=== PATIENT | male | born 1975 | race Caucasian/White ===

== ENCOUNTER → 2018-05-28 15:04 | Outpatient (CLI) | payer BC, SELFPAY | PROVIDERS: PCP Internal Medicine; Visit Provider Internal Medicine | DX: R00.0 Tachycardia, unspecified (principal); I10 Essential (primary) hypertension | CPT/HCPCS: 93005 ==

== ENCOUNTER → 2021-01-18 12:51 | Outpatient (CLI) | payer BC, SELFPAY | PROVIDERS: Visit Provider Internal Medicine Gastroenterology | DX: U07.1 COVID-19 (principal) | CPT/HCPCS: C9803; U0003; U0005 ==

== ENCOUNTER → 2021-02-03 14:31 | Outpatient (CLI) | payer BC, SELFPAY ==
[2021-02-03 16:21] LABS: Anion Gap 18.8 mEq/L (5-15); Blood Urea Nitrogen 4 mg/dl (9-20); Calcium 9.3 mg/dl (8.4-10.2); Carbon Dioxide 27 mmol/L (22.0-30.0); Chloride 104 mmol/L (98-107); Estimated Glomerular Filt Rate 146 ml/min (>60); GFR (African American) 176 ML/MIN (>60); Glucose 103 mg/dl (74-100); Potassium 3.8 mmoL/L (3.5-5.1); Sodium 146 mmol/L (136-145)
== END ==
PROVIDERS: Visit Provider Internal Medicine
DX: M10.9 Gout, unspecified (principal)
CPT/HCPCS: 36415; 80048; 84550

== ENCOUNTER → 2021-03-17 14:02 | Outpatient (CLI) | payer BC, SELFPAY ==
[2021-03-17 14:44] LABS: Alanine Aminotransferase 24 U/L (12-78); Albumin Level 4.2 g/dl (3.5-5.0); Albumin/Globulin Ratio 1.4 (1.1-1.8); Alkaline Phosphatase 143 U/L (38-126); Aspartate Amino Transferase 174 U/L (17-59); Bilirubin,Total 2.5 mg/dl (0.2-1.3); Blood Urea Nitrogen 7 mg/dl (9-20); Calcium 8.8 mg/dl (8.4-10.2); Chloride 95 mmol/L (98-107); Estimated Glomerular Filt Rate 146 ml/min (>60); GFR (African American) 176 ML/MIN (>60); Globulin 3.1 g/dL (1.3-3.2); Glucose 89 mg/dl (74-100); Potassium 3.6 mmoL/L (3.5-5.1); Sodium 140 mmol/L (136-145); Total Protein,Serum 7.3 g/dl (6.3-8.2); Uric Acid 3.6 mg/dl (3.5-8.5)
[2021-03-17 15:02] LABS: Basophils # 0.1 K/mm3 (0-0.2); Basophils % 1.8 % (0.1-2.0); Eosinophils # 0.1 K/mm3 (0.0-0.4); Eosinophils % 1.1 % (0.1-12.0); Hematocrit 40.1 % (42.0-52.0); Lymphocytes # 1.2 K/mm3 (0.7-4.5); Lymphocytes % 20.8 % (10-50); Mean Corpuscular HGB Conc 32.5 g/dL (31.8-35.4); Mean Corpuscular Hemoglobin 31.5 pg (27.0-31.2); Mean Corpuscular Volume 96.7 fl (80-94); Mean Platelet Volume 9.9 fl (7.4-10.4); Monocytes # 0.4 K/mm3 (0.1-1.0); Monocytes % 7.1 % (1.7-9.3); Neutrophils # 3.9 K/mm3 (1.8-7.8); Neutrophils % 69.2 % (37.0-80.0); Platelet Count 103 K/mm3 (142-424); Red Blood Count 4.14 M/mm3 (4.60-6.20); Red Cell Distribution Width 13.4 % (11.5-17.5); White Blood Count 5.7 K/mm3 (4.8-10.8)
[2021-03-17 15:52] LABS: Vitamin B12 668 pg/mL (239-931)
[2021-03-17 15:58] LABS: Folate 2.28 ng/mL
[2021-03-17 16:15] LABS: Anion Gap 22.6 mEq/L (5-15); Carbon Dioxide 26 mmol/L (22.0-30.0)
== END ==
LOC: LAB.DROPOF 14:04
PROVIDERS: Visit Provider Internal Medicine
DX: I10 Essential (primary) hypertension (principal); E78.5 Hyperlipidemia, unspecified; R63.4 Abnormal weight loss; M10.9 Gout, unspecified
CPT/HCPCS: 80053; 82607; 82746; 84550; 85025

== ENCOUNTER → 2021-04-15 08:42 | Outpatient (CLI) | payer BC, SELFPAY ==
[2021-04-15 10:16] LABS: Basophils % 0.4 % (0.1-2.0); Eosinophils # 0.1 K/mm3 (0.0-0.4); Eosinophils % 0.7 % (0.1-12.0); Hematocrit 38.6 % (42.0-52.0); Hemoglobin 13.1 g/dL (14.1-18.0); Lymphocytes # 1.2 K/mm3 (0.7-4.5); Lymphocytes % 13.2 % (10-50); Mean Corpuscular HGB Conc 33.9 g/dL (31.8-35.4); Mean Corpuscular Hemoglobin 32.8 pg (27.0-31.2); Mean Corpuscular Volume 96.7 fl (80-94); Mean Platelet Volume 8.4 fl (7.4-10.4); Monocytes # 0.6 K/mm3 (0.1-1.0); Monocytes % 7.1 % (1.7-9.3); Neutrophils # 6.8 K/mm3 (1.8-7.8); Neutrophils % 78.6 % (37.0-80.0); Platelet Count 131 K/mm3 (142-424); Red Blood Count 3.99 M/mm3 (4.60-6.20); Red Cell Distribution Width 18.4 % (11.5-17.5); White Blood Count 8.7 K/mm3 (4.8-10.8)
[2021-04-15 10:25] LABS: INR 1.35 (0.9-1.1); Prothrombin Time 14.9 seconds (10.1-12.5)
[2021-04-15 10:40] LABS: Alanine Aminotransferase 45 U/L (12-78); Albumin Level 4.2 g/dl (3.5-5.0); Albumin/Globulin Ratio 1.4 (1.1-1.8); Alkaline Phosphatase 159 U/L (38-126); Aspartate Amino Transferase 192 U/L (17-59); Bilirubin,Total 2.8 mg/dl (0.2-1.3); Blood Urea Nitrogen 9 mg/dl (9-20); Calcium 8.5 mg/dl (8.4-10.2); Carbon Dioxide 23 mmol/L (22.0-30.0); Chloride 94 mmol/L (98-107); Estimated Glomerular Filt Rate 122 ml/min (>60); GFR (African American) 148 ML/MIN (>60); Glucose 78 mg/dl (74-100); Sodium 135 mmol/L (136-145); Total Protein,Serum 7.2 g/dl (6.3-8.2)
[2021-04-16 10:13] LABS: Hep A Ab, IgM Negative (Negative); Hepatitis B Core Antibody IgM Negative (Negative); Hepatitis B Surface Antigen Negative (Negative); Hepatitis C Antibody <0.1 s/co ratio (0.0-0.9)
== END ==
LOC: LAB 08:43
PROVIDERS: Visit Provider Surgery
DX: Z01.812 Encounter for preprocedural laboratory examination (principal); Z11.52 Encounter for screening for COVID-19; K80.20 Calculus of gallbladder without cholecystitis without obstruction
CPT/HCPCS: 36415; 80053; 80074; 85025; 85610; C9803; U0003; U0005

== ENCOUNTER → 2021-04-17 10:25 | Outpatient (CLI) | payer BC, SELFPAY ==
--- NOTE | 2021-04-17 10:28 | CT_ITS ---
PROCEDURE: CT ABDOMEN PELVIS W CON CLINICAL INDICATION: abdominal pain/ascites COMPARISON: No exams were available for comparison TECHNIQUE: IV Contrast: 75ML Isovue 370 Oral Contrast None Axial images obtained with sagittal and coronal reformats. All CT scans at the facility use one or more dose reduction, viz: automated exposure control, ma/kV adjustment per patient size (including targeted exams where dose is matched to indication, i.e. head), or iterative reconstruction technique. FINDINGS: LOWER THORAX: No acute finding ABDOMEN & PELVIS: Most cephalad component of the liver is not included on the images. Liver is enlarged measuring 28 cm in maximum transverse dimension. There is elevation of the right hemidiaphragm with atelectatic changes in the right lower lobe. There is diffuse fatty infiltration of the liver with a somewhat coarse appearance. No focal liver lesion apparent. The spleen is enlarged at 16 cm. Portal vein is upper normal at 14 mm. There are few small varices noted in the celiac region. There is a small amount fluid in the pelvis. No obvious perihepatic or perisplenic fluid. The adrenal glands and pancreas has an unremarkable appearance. No renal or ureteral calculi or suspicious renal mass. Small exophytic cyst projects off the right kidney laterally at 7 mm. There is some minimal haziness of the fat posterior to the pancreatic head. There is also mild thickening of the pericolic gutters and anterior pararenal fascia. These findings could all be related to hypoalbuminemia. There is colonic diverticulosis but no evidence of diverticulitis. Multiple gallstones are present. No gallbladder wall thickening or stranding of the pericholecystic fat. No evidence of appendicitis, intestinal obstruction, or free air. Degenerative disc disease L5-S1. Well-circumscribed 6 mm lucency is noted in the right femoral neck and may be due to a benign cortical defect. Scattered small sclerotic densities of pelvis may represent bone islands. There is mild lumbar scoliosis convex right. IMPRESSION: Hepatosplenomegaly. There is heterogeneous density of the liver which may be related to asymmetric fatty infiltration and or hepatitis. Small amount of fluid in the pelvis with thickening of the pericolic gutters and pararenal fascia is as well as some hazy density around the celiac region which may be related to changes from hypoalbuminemia. There are few small varices in the celiac region. Findings compatible with portal hypertension. Cholelithiasis Colonic diverticulosis. No evidence of diverticulitis. Dictated by: Avni Gonzalez MD 04/17/2021 11:27 Avni Gonzalez MD in [facility] 04/17/2021 11:27
--- NOTE | 2021-04-17 11:28 | ECG_ITS ---
APPROVED REPORT Exam: Resting ECG HR:85 bpm ECG Measurements Heart Rate 85 AXES LA 166 P 35 QRSd 96 QRS 16 QT 372 T 9 QTc 442 Conclusion Normal sinus rhythm Minimal voltage criteria for LVH, may be normal variant Borderline ECG Electronically signed by : Jak Esteves MD 04/17/2021 20:15:50
== END ==
LOC: RAD 10:26
PROVIDERS: PCP Internal Medicine; Visit Provider Surgery
DX: R10.9 Unspecified abdominal pain (principal)
CPT/HCPCS: 74177; 93005; Q9967

== ENCOUNTER → 2021-04-18 08:24 | Day surgery (SDC) | payer BC, SELFPAY ==
[2021-04-11 10:08] VITALS: BMI 32.1
[2021-04-18 08:42] VITALS: BP 119/72; PULSE 91; RESP 18; TEMP 36.6; O2SAT 98
[2021-04-18 09:03] LABS: Alanine Aminotransferase 60 U/L (12-78); Albumin Level 4.3 g/dl (3.5-5.0); Albumin/Globulin Ratio 1.2 (1.1-1.8); Alkaline Phosphatase 149 U/L (38-126); Amylase 87 U/L (30-110); Aspartate Amino Transferase 169 U/L (17-59); Bilirubin,Total 3.7 mg/dl (0.2-1.3); Blood Urea Nitrogen 5 mg/dl (9-20); Calcium 8.5 mg/dl (8.4-10.2); Carbon Dioxide 30 mmol/L (22.0-30.0); Chloride 92 mmol/L (98-107); Creatinine Clearance Estimated 197 mL/min (50-200); Estimated Glomerular Filt Rate 122 ml/min (>60); GFR (African American) 148 ML/MIN (>60); Globulin 3.7 g/dL (1.3-3.2); Glucose 89 mg/dl (74-100); Sodium 138 mmol/L (136-145)
[2021-04-18 09:04] LABS: INR 1.38 (0.9-1.1); Prothrombin Time 15.2 seconds (10.1-12.5)
[2021-04-18 09:25] LABS: Lipase 721 U/L (23-300)
[2021-04-18 10:00] LABS: Ethyl Alcohol < 10 mg/dl (0-10)
--- NOTE | 2021-04-18 15:59 | P.PN_ITS ---
Subjective Narrative: Patient underwent repeat blood work. Potassium still 3.0. He shows increasing bilirubin. He does have elevated lipase consistent with alcoholic pancreatitis. INR is 1.38. Progress Note: A&P Assessment and Plan for All Diagnoses:: His model for end-stage liver disease score (MELD) is at least 14-17. His clinical scenario seems to be likely more consistent with end-stage liver disease and not due to his gallbladder. His operative mortality would be significant and this with his persistent low potassium puts him at high operative risk at this time. With discussion with anesthesia it was felt that it would be best to cancel his case at this time. The case was discussed with gastroenterology who agrees and feels that his primary problem is likely hepatic. Arrangements will be made for outpatient gastroenterology follow-up. Attempt will be made to arrange for outpatient MRCP. Exam Vital signs and Labs for Last 24 Hours: Temp Pulse Resp BP Pulse Ox 97.8 F 91 H 18 119/72 98 04/18/21 08:42 04/18/21 08:42 04/18/21 08:42 04/18/21 08:42 04/18/21 08:42 Laboratory Results - last 24 hr 04/18/21 08:35: PT 15.2 H, INR 1.38 H 04/18/21 08:35: Sodium 138, Potassium 3.0 L, Chloride 92 L, Carbon Dioxide 30, Anion Gap 19.0 H, BUN 5 L D, Creatinine 0.70, Estimated Creat Clear 197, Estimated GFR 122, Est GFR ( Amer) 148, Glucose 89, Calcium 8.5, Total Bilirubin 3.7 H, Direct Bilirubin 2.0 H, AST 169 H, ALT 60 D, Alkaline Phosphatase 149 H, Total Protein 8.0, Albumin 4.3, Globulin 3.7 H, Albumin/ Globulin Ratio 1.2, Amylase 87, Lipase 721 H 04/18/21 08:35: Plasma/Serum Alcohol < 10 - Constitutional Comments: Patient does appear jaundiced.
== END ==
LOC: OR 08:25
PROVIDERS: Anesthesiology; PCP Internal Medicine; Visit Provider Surgery
DX: Z53.09 Procedure and treatment not carried out because of other contraindication (principal)
CPT/HCPCS: 80053; 82150; 82248; 83690; 85610